=== PATIENT | female | born 1980 | race Caucasian/White ===

== ENCOUNTER 2016-07-30 19:25 | Emergency (ER) | payer MEDICAID ==
[2015-08-06 13:07] VITALS: BMI 18.9
[~2016-07-30 19:25] MED LIST: HYDROCODONE-APA1 TAB PO; PERCOCET 10/3251 TA1 PO; ROBAXIN-750750 MG PO
== END 2016-07-30 21:25 | disposition home or self-care (01) ==
LOC: D.ER 19:25
DX: M25.531 Pain in right wrist (principal); M65.831 Other synovitis and tenosynovitis, right forearm

== ENCOUNTER 2016-08-12 14:42 | Emergency (ER) | payer MEDICAID ==
[2015-08-06 13:07] VITALS: BMI 18.9
== END 2016-08-12 16:46 | disposition home or self-care (01) ==
LOC: D.ER 14:42
DX: S63.501A Unspecified sprain of right wrist, initial encounter (principal); W19.XXXA Unspecified fall, initial encounter; Y93.89 Activity, other specified; Y92.89 Other specified places as the place of occurrence of the external cause; F17.200 Nicotine dependence, unspecified, uncomplicated

== ENCOUNTER → 2016-09-12 12:41 | Outpatient (CLI) | payer MEDICAID ==
[2015-08-06 13:07] VITALS: BMI 18.9
== END | disposition home or self-care (01) ==
LOC: D.MRI 09-07 16:00
DX: G56.31 Lesion of radial nerve, right upper limb (principal); M25.531 Pain in right wrist

== ENCOUNTER 2016-10-06 22:13 | Emergency (ER) | payer MEDICAID ==
[2015-08-06 13:07] VITALS: BMI 18.9
== END 2016-10-06 23:43 | disposition home or self-care (01) ==
LOC: D.ER 22:13
DX: L76.82 Other postprocedural complications of skin and subcutaneous tissue (principal)

== ENCOUNTER 2016-10-09 20:44 | Emergency (ER) | payer MEDICAID ==
[2015-08-06 13:07] VITALS: BMI 18.9
== END 2016-10-09 21:58 | disposition home or self-care (01) ==
LOC: D.ER 20:44
DX: S61.511D Laceration without foreign body of right wrist, subsequent encounter (principal); X58.XXXD Exposure to other specified factors, subsequent encounter; Y92.89 Other specified places as the place of occurrence of the external cause; F17.200 Nicotine dependence, unspecified, uncomplicated

== ENCOUNTER 2016-11-02 22:46 | Emergency (ER) | payer MEDICAID ==
[2015-08-06 13:07] VITALS: BMI 18.9
== END 2016-11-03 00:02 | disposition home or self-care (01) ==
LOC: D.ER 22:46
DX: S60.221A Contusion of right hand, initial encounter (principal); W20.8XXA Other cause of strike by thrown, projected or falling object, initial encounter; Y93.89 Activity, other specified; Y92.019 Unspecified place in single-family (private) house as the place of occurrence of the external cause

== ENCOUNTER 2016-11-08 17:29 | Emergency (ER) | payer MEDICAID ==
[2015-08-06 13:07] VITALS: BMI 18.9
== END 2016-11-08 20:00 | disposition home or self-care (01) ==
LOC: D.ER 17:29
DX: S61.411A Laceration without foreign body of right hand, initial encounter (principal); W01.110A Fall on same level from slipping, tripping and stumbling with subsequent striking against sharp glass, initial encounter; Y93.89 Activity, other specified; Y92.019 Unspecified place in single-family (private) house as the place of occurrence of the external cause

== ENCOUNTER 2016-12-20 13:30 | Emergency (ER) | payer MEDICAID ==
[2015-08-06 13:07] VITALS: BMI 18.9
== END 2016-12-20 15:15 | disposition home or self-care (01) ==
LOC: D.ER 13:30
DX: S05.01XA Injury of conjunctiva and corneal abrasion without foreign body, right eye, initial encounter (principal); X58.XXXA Exposure to other specified factors, initial encounter; Y93.89 Activity, other specified; Y92.029 Unspecified place in mobile home as the place of occurrence of the external cause

== ENCOUNTER 2017-01-01 10:04 | Emergency (ER) | payer MEDICAID ==
[2015-08-06 13:07] VITALS: BMI 18.9
== END 2017-01-01 12:08 | disposition home or self-care (01) ==
LOC: D.ER 10:04
DX: J20.9 Acute bronchitis, unspecified (principal); F17.200 Nicotine dependence, unspecified, uncomplicated

== ENCOUNTER 2017-01-01 19:41 | Emergency (ER) | payer MEDICAID ==
[2015-08-06 13:07] VITALS: BMI 18.9
[2017-01-01 21:07] LABS: BASOPHILS 0 % (0-2); EOSINOPHILS 0 % (0-7); HEMATOCRIT 42.2 % (36.0-48.0); HEMOGLOBIN 14.2 g/dL (12-16); IMMATURE GRANULOCYTES 0.2 % (0-5); LYMPHOCYTES 14.4 % (15-50); MCH 31.6 pg (26.0-34.0); MCHC 33.6 g/dL (31.0-37.0); MEAN PLATELET VOLUME 11.9 fL (7.4-10.4); MONOCYTES 1.8 % (2-11); NEUTROPHILS 83.6 % (40-80); RBC 4.49 10x6/uL (4.00-5.40); RDW 12.2 % (11.5-14.5); WBC 4.5 10x3/uL (4.8-10.8)
[2017-01-01 21:21] LABS: PLATELET COUNT 219 10x3/uL (130-400)
[2017-01-01 21:23] LABS: ALBUMIN 3.6 g/dL (3.4-5.0); ALKALINE PHOSPHATASE 106 U/L (46-116); ALT (SGPT) 17 U/L (10-68); BILIRUBIN - TOTAL 0.11 mg/dL (0.2-1.3); CALC OSMOLALITY 286 mosm/kg (275-300); CALCIUM 9.1 mg/dL (8.5-10.1); CARBON DIOXIDE 26.7 mmol/L (21.0-32.0); CHLORIDE - SERUM 105 mmol/L (98-107); CREATININE - SERUM 0.8 mg/dL (0.6-1.3); POTASSIUM - SERUM 4.2 mmol/L (3.5-5.1); PROTEIN - SERUM 7.1 g/dL (6.4-8.2); SODIUM 142 mmol/L (136-145); UREA NITROGEN 18 mg/dL (7-18); eGFR NON AFRICAN AMERICAN 86 mL/min (90-120)
[2017-01-01 21:25] LABS: GLUCOSE 143 mg/dL (74-106)
[2017-01-01 21:27] LABS: TROPONIN-I < 0.017 ng/mL (0.000-0.060)
== END 2017-01-01 21:50 | disposition home or self-care (01) ==
LOC: D.ER 19:41
PROVIDERS: Physician Assistant Medical
DX: J20.9 Acute bronchitis, unspecified (principal); F17.200 Nicotine dependence, unspecified, uncomplicated

== ENCOUNTER 2017-01-08 18:04 | Emergency (ER) | payer MEDICAID ==
[2015-08-06 13:07] VITALS: BMI 18.9
== END 2017-01-08 21:15 | disposition home or self-care (01) ==
LOC: D.ER 18:04
DX: S92.901A Unspecified fracture of right foot, initial encounter for closed fracture (principal); W10.9XXA Fall (on) (from) unspecified stairs and steps, initial encounter; Y93.89 Activity, other specified; Y92.029 Unspecified place in mobile home as the place of occurrence of the external cause

== ENCOUNTER 2017-01-11 22:41 | Emergency (ER) | payer MEDICAID ==
[2015-08-06 13:07] VITALS: BMI 18.9
== END 2017-01-11 23:28 | disposition home or self-care (01) ==
LOC: D.ER 22:41
DX: S93.601A Unspecified sprain of right foot, initial encounter (principal); X58.XXXA Exposure to other specified factors, initial encounter; Y93.89 Activity, other specified; Y92.029 Unspecified place in mobile home as the place of occurrence of the external cause

== ENCOUNTER 2017-01-17 22:39 | Emergency (ER) | payer MEDICAID ==
[2015-08-06 13:07] VITALS: BMI 18.9
== END 2017-01-17 23:34 | disposition home or self-care (01) ==
LOC: D.ER 22:39
DX: L03.116 Cellulitis of left lower limb (principal); F17.200 Nicotine dependence, unspecified, uncomplicated

== ENCOUNTER 2017-03-04 21:22 | Emergency (ER) | payer MEDICAID ==
[2015-08-06 13:07] VITALS: BMI 18.9
== END 2017-03-04 22:25 | disposition home or self-care (01) ==
LOC: D.ER 21:22
DX: M62.838 Other muscle spasm (principal); M54.12 Radiculopathy, cervical region

== ENCOUNTER 2017-03-13 22:27 | Emergency (ER) | payer MEDICAID ==
[2015-08-06 13:07] VITALS: BMI 18.9
== END 2017-03-14 03:01 | disposition home or self-care (01) ==
LOC: D.ER 22:27
DX: S83.91XA Sprain of unspecified site of right knee, initial encounter (principal); W11.XXXA Fall on and from ladder, initial encounter; Y93.89 Activity, other specified; Y92.019 Unspecified place in single-family (private) house as the place of occurrence of the external cause; S93.401A Sprain of unspecified ligament of right ankle, initial encounter; S20.229A Contusion of unspecified back wall of thorax, initial encounter; S30.0XXA Contusion of lower back and pelvis, initial encounter; S40.012A Contusion of left shoulder, initial encounter; S06.0X0A Concussion without loss of consciousness, initial encounter; F17.200 Nicotine dependence, unspecified, uncomplicated

== ENCOUNTER 2017-03-19 22:59 | Emergency (ER) | payer MEDICAID ==
[2015-08-06 13:07] VITALS: BMI 18.9
== END 2017-03-20 00:25 | disposition home or self-care (01) ==
LOC: D.ER 22:59
DX: S39.012A Strain of muscle, fascia and tendon of lower back, initial encounter (principal); W19.XXXA Unspecified fall, initial encounter; Y93.89 Activity, other specified; Y92.019 Unspecified place in single-family (private) house as the place of occurrence of the external cause; S16.1XXA Strain of muscle, fascia and tendon at neck level, initial encounter; M62.830 Muscle spasm of back; F17.200 Nicotine dependence, unspecified, uncomplicated

== ENCOUNTER 2017-03-21 02:36 | Emergency (ER) | payer MEDICAID ==
[2015-08-06 13:07] VITALS: BMI 18.9
== END 2017-03-21 05:21 | disposition home or self-care (01) ==
LOC: D.ER 02:36
DX: S90.31XA Contusion of right foot, initial encounter (principal); W20.8XXA Other cause of strike by thrown, projected or falling object, initial encounter; Y93.89 Activity, other specified; Y92.89 Other specified places as the place of occurrence of the external cause

== ENCOUNTER 2017-03-31 16:28 | Emergency (ER) | payer MEDICAID ==
[2015-08-06 13:07] VITALS: BMI 18.9
== END 2017-03-31 19:01 | disposition home or self-care (01) ==
LOC: D.ER 16:28
DX: T39.1X5A Adverse effect of 4-Aminophenol derivatives, initial encounter (principal); Y92.019 Unspecified place in single-family (private) house as the place of occurrence of the external cause

== ENCOUNTER 2017-04-17 16:34 | Emergency (ER) | payer MEDICAID ==
[2015-08-06 13:07] VITALS: BMI 18.9
== END 2017-04-17 19:20 | disposition home or self-care (01) ==
LOC: D.ER 16:34
DX: S20.219A Contusion of unspecified front wall of thorax, initial encounter (principal); W20.8XXA Other cause of strike by thrown, projected or falling object, initial encounter; Y93.89 Activity, other specified; Y92.019 Unspecified place in single-family (private) house as the place of occurrence of the external cause; R07.81 Pleurodynia

== ENCOUNTER 2017-05-14 16:32 | Emergency (ER) | payer MEDICAID ==
[2015-08-06 13:07] VITALS: BMI 18.9
[2017-05-14 18:39] LABS: BASOPHILS 0.2 % (0-2); EOSINOPHILS 1.1 % (0-7); HEMOGLOBIN 13.6 g/dL (12-16); IMMATURE GRANULOCYTES 0.2 % (0-5); LYMPHOCYTES 31.4 % (15-50); MCH 31.6 pg (26.0-34.0); MCHC 33.2 g/dL (31.0-37.0); MCV 95.3 fL (80.0-100.0); MEAN PLATELET VOLUME 11.8 fL (7.4-10.4); MONOCYTES 7.6 % (2-11); NEUTROPHILS 59.5 % (40-80); PLATELET COUNT 195 10x3/uL (130-400); WBC 5.3 10x3/uL (4.8-10.8)
[2017-05-14 18:41] LABS: UDS - AMPHET NEGATIVE QUAL (NEGATIVE); UDS - BARB NEGATIVE QUAL (NEGATIVE); UDS - BENZO NEGATIVE QUAL (NEGATIVE); UDS - COCAINE NEGATIVE QUAL (NEGATIVE); UDS - OPIATE POSITIVE QUAL (NEGATIVE); UDS - PCP NEGATIVE QUAL (NEGATIVE); UDS - THC NEGATIVE QUAL (NEGATIVE)
[2017-05-14 18:48] LABS: ALBUMIN 3.6 g/dL (3.4-5.0); ALKALINE PHOSPHATASE 89 U/L (46-116); ALT (SGPT) 13 U/L (10-68); BILIRUBIN - TOTAL 0.32 mg/dL (0.2-1.3); CALC OSMOLALITY 283 mosm/kg (275-300); CALCIUM 8.9 mg/dL (8.5-10.1); CARBON DIOXIDE 27.6 mmol/L (21.0-32.0); CHLORIDE - SERUM 106 mmol/L (98-107); CREATININE - SERUM 0.6 mg/dL (0.6-1.3); POTASSIUM - SERUM 3.7 mmol/L (3.5-5.1); PROTEIN - SERUM 7.4 g/dL (6.4-8.2); SODIUM 144 mmol/L (136-145); UREA NITROGEN 5 mg/dL (7-18); eGFR NON AFRICAN AMERICAN > 90 mL/min (90-120)
[2017-05-14 18:49] LABS: APPEARANCE CLEAR (CLEAR); BILIRUBIN NEGATIVE (NEGATIVE); COLOR YELLOW (YELLOW); GLUCOSE NEGATIVE (NEGATIVE); KETONE NEGATIVE (NEGATIVE); NITRITE NEGATIVE (NEGATIVE); PROTEIN NEGATIVE (NEGATIVE); UROBILINOGEN NORMAL (NORMAL)
[2017-05-14 18:55] LABS: GLUCOSE 95 mg/dL (74-106)
== END 2017-05-14 18:57 | disposition home or self-care (01) ==
LOC: D.ER 16:32
PROVIDERS: Family Medicine
DX: G89.18 Other acute postprocedural pain (principal); F17.200 Nicotine dependence, unspecified, uncomplicated

== ENCOUNTER 2017-07-09 17:55 | Emergency (ER) | payer MEDICAID ==
[2015-08-06 13:07] VITALS: BMI 18.9
[2017-07-09 18:48] LABS: APPEARANCE CLEAR (CLEAR); BILIRUBIN NEGATIVE (NEGATIVE); COLOR YELLOW (YELLOW); GLUCOSE NEGATIVE (NEGATIVE); HCG URINE NEGATIVE (NEGATIVE); KETONE NEGATIVE (NEGATIVE); NITRITE NEGATIVE (NEGATIVE); PH 6.5 (5.0-6.0); PROTEIN NEGATIVE (NEGATIVE); SPECIFIC GRAVITY 1.005 (1.005-1.020); UROBILINOGEN NORMAL (NORMAL)
== END 2017-07-09 22:55 | disposition home or self-care (01) ==
LOC: D.ER 17:55
PROVIDERS: Family Medicine; Nurse Practitioner Family
DX: M54.5 Low back pain (principal); F17.200 Nicotine dependence, unspecified, uncomplicated

== ENCOUNTER 2017-09-06 19:43 | Emergency (ER) | payer MEDICAID ==
[~2017-09-06] VITALS: Ht 162.6 cm; Wt 52.3 kg
[2017-09-06 20:01] VITALS: Ht 162.6 cm; Wt 52.3 kg
[2017-09-06] MEDS ORDERED: PREDNISONE20 MG PO (20:41)
[2017-09-06] MEDS ORDERED: TALWIN NX1 TAB PO (20:41)
[2017-09-06 21:01] VITALS: BP 145/72
== END 2017-09-06 21:03 | disposition home or self-care (01) ==
LOC: D.ER 19:43
DX: M79.604 Pain in right leg (principal); M79.1 Myalgia; W11.XXXA Fall on and from ladder, initial encounter; Y93.89 Activity, other specified; Y92.89 Other specified places as the place of occurrence of the external cause

== ENCOUNTER 2017-09-14 20:19 | Emergency (ER) | payer MEDICAID ==
[~2017-09-14] VITALS: Ht 162.6 cm; Wt 52.2 kg
[~2017-09-14 20:19] MED LIST changes: +PREDNISONE20 MG PO; +TALWIN NX1 TAB PO
[2017-09-14 20:38] VITALS: BP 113/81; Ht 162.6 cm; Wt 52.2 kg
== END 2017-09-14 23:22 | disposition home or self-care (01) ==
LOC: D.ER 20:19
DX: S41.112A Laceration without foreign body of left upper arm, initial encounter (principal); W26.8XXA Contact with other sharp object(s), not elsewhere classified, initial encounter; Y93.89 Activity, other specified; Y92.019 Unspecified place in single-family (private) house as the place of occurrence of the external cause; F17.200 Nicotine dependence, unspecified, uncomplicated

== ENCOUNTER 2017-09-24 14:46 | Emergency (ER) | payer MEDICAID ==
[~2017-09-24] VITALS: Ht 162.6 cm; Wt 50.0 kg
[2017-09-24 14:55] VITALS: Ht 162.6 cm; Wt 50.0 kg
[2017-09-24] MEDS ORDERED: VALIUM 2 MG TAB2 MG PO (17:02)
[2017-09-24] MEDS ORDERED: EC-NAPROSYN500 MG PO (17:04)
[2017-09-24 17:23] VITALS: BP 122/80
== END 2017-09-24 17:24 | disposition home or self-care (01) ==
LOC: D.ER 14:46
DX: S20.211A Contusion of right front wall of thorax, initial encounter (principal); Y93.83 Activity, rough housing and horseplay; Y92.019 Unspecified place in single-family (private) house as the place of occurrence of the external cause; M94.0 Chondrocostal junction syndrome [Tietze]; F17.200 Nicotine dependence, unspecified, uncomplicated

== ENCOUNTER 2017-09-25 22:29 | Emergency (ER) | payer MEDICAID ==
[~2017-09-25] VITALS: Ht 162.6 cm; Wt 49.9 kg
[~2017-09-25 22:29] MED LIST changes: +EC-NAPROSYN500 MG PO; +VALIUM 2 MG TAB2 MG PO
[2017-09-25 23:03] VITALS: Ht 162.6 cm; Wt 49.9 kg
[2017-09-26 00:47] LABS: BASOPHILS 0.1 % (0-2); EOSINOPHILS 0.3 % (0-7); HEMATOCRIT 39.1 % (36.0-48.0); HEMOGLOBIN 13.4 g/dL (12-16); IMMATURE GRANULOCYTES 0.1 % (0-5); LYMPHOCYTES 18.1 % (15-50); MCH 32.1 pg (26.0-34.0); MCHC 34.3 g/dL (31.0-37.0); MCV 93.8 fL (80.0-100.0); MEAN PLATELET VOLUME 11.8 fL (7.4-10.4); MONOCYTES 4.5 % (2-11); NEUTROPHILS 76.9 % (40-80); PLATELET COUNT 179 10x3/uL (130-400); RBC 4.17 10x6/uL (4.00-5.40); RDW 13.1 % (11.5-14.5); WBC 9.2 10x3/uL (4.8-10.8)
[2017-09-26 00:50] LABS: ALBUMIN 3.4 g/dL (3.4-5.0); ALKALINE PHOSPHATASE 93 U/L (46-116); ALT (SGPT) 25 U/L (10-68); BILIRUBIN - TOTAL 0.22 mg/dL (0.2-1.3); CALC OSMOLALITY 280 mosm/kg (275-300); CALCIUM 8.7 mg/dL (8.5-10.1); CHLORIDE - SERUM 103 mmol/L (98-107); CREATININE - SERUM 0.7 mg/dL (0.6-1.3); GLUCOSE 119 mg/dL (74-106); POTASSIUM - SERUM 3.5 mmol/L (3.5-5.1); SODIUM 141 mmol/L (136-145); UREA NITROGEN 9 mg/dL (7-18); eGFR NON AFRICAN AMERICAN > 90 mL/min (90-120)
[2017-09-26 03:04] VITALS: BP 145/84
== END 2017-09-26 02:59 | disposition home or self-care (01) ==
LOC: D.ER 22:29
PROVIDERS: Family Medicine
DX: S20.211A Contusion of right front wall of thorax, initial encounter (principal); W19.XXXA Unspecified fall, initial encounter; Y93.89 Activity, other specified; Y92.019 Unspecified place in single-family (private) house as the place of occurrence of the external cause; F17.200 Nicotine dependence, unspecified, uncomplicated

== ENCOUNTER 2018-01-24 13:43 | Emergency (ER) | payer MEDICAID ==
[~2018-01-24] VITALS: Ht 162.6 cm; Wt 52.3 kg
[2018-01-24 13:55] VITALS: Ht 162.6 cm; Wt 52.3 kg
[2018-01-24] MEDS ORDERED: INDOCIN25 MG PO (16:35)
[2018-01-24] MEDS ORDERED: VIBRAMYCIN 100100 MG PO (16:36)
[2018-01-24 17:05] VITALS: BP 123/70
[2018-01-28] MEDS ORDERED: TORADOL10 MG PO (23:27)
== END 2018-01-24 17:05 | disposition home or self-care (01) ==
LOC: D.ER 13:43
DX: L03.115 Cellulitis of right lower limb (principal); F17.200 Nicotine dependence, unspecified, uncomplicated

== ENCOUNTER 2018-01-28 20:00 | Emergency (ER) | payer MEDICAID ==
[2018-01-28 21:40] LABS: BASOPHILS 0.9 % (0-2); EOSINOPHILS 6.5 % (0-7); HEMATOCRIT 37.8 % (36.0-48.0); HEMOGLOBIN 12.6 g/dL (12-16); IMMATURE GRANULOCYTES 0.2 % (0-5); LYMPHOCYTES 38.4 % (15-50); MCH 31.7 pg (26.0-34.0); MCHC 33.3 g/dL (31.0-37.0); MCV 95.2 fL (80.0-100.0); MEAN PLATELET VOLUME 10.8 fL (7.4-10.4); MONOCYTES 6.7 % (2-11); NEUTROPHILS 47.3 % (40-80); PLATELET COUNT 153 10x3/uL (130-400); RBC 3.97 10x6/uL (4.00-5.40); RDW 13.4 % (11.5-14.5); WBC 4.5 10x3/uL (4.8-10.8)
[2018-01-28 22:07] LABS: ALBUMIN 3.4 g/dL (3.4-5.0); ALKALINE PHOSPHATASE 72 U/L (46-116); ALT (SGPT) 25 U/L (10-68); BILIRUBIN - TOTAL 0.28 mg/dL (0.2-1.3); CALCIUM 8.2 mg/dL (8.5-10.1); CARBON DIOXIDE 31.7 mmol/L (21.0-32.0); CHLORIDE - SERUM 101 mmol/L (98-107); CREATININE - SERUM 0.6 mg/dL (0.6-1.3); GLUCOSE 107 mg/dL (74-106); POTASSIUM - SERUM 3.7 mmol/L (3.5-5.1); PROTEIN - SERUM 6.9 g/dL (6.4-8.2); SODIUM 140 mmol/L (136-145); eGFR NON AFRICAN AMERICAN > 90 mL/min (90-120)
[2018-01-28 22:14] LABS: CALC OSMOLALITY 276 mosm/kg (275-300); UREA NITROGEN 8 mg/dL (7-18)
== END 2018-01-28 23:55 | disposition home or self-care (01) ==
LOC: D.ER 20:00
PROVIDERS: Family Medicine
DX: L72.3 Sebaceous cyst (principal); F17.200 Nicotine dependence, unspecified, uncomplicated

== ENCOUNTER 2018-02-03 09:33 | Emergency (ER) | payer MEDICAID ==
[~2018-02-03] VITALS: Ht 162.6 cm; Wt 52.3 kg
[~2018-02-03 09:33] MED LIST changes: +INDOCIN25 MG PO; +TORADOL10 MG PO; +VIBRAMYCIN 100100 MG PO
[2018-02-03 09:46] VITALS: Ht 162.6 cm; Wt 52.3 kg
[2018-02-03] MEDS ORDERED: NORCO 7.5/325 T1 TA1 PO (12:21)
[2018-02-03 13:57] VITALS: BP 127/64
== END 2018-02-03 12:40 | disposition home or self-care (01) ==
LOC: D.ER 09:33
DX: L02.415 Cutaneous abscess of right lower limb (principal); F17.200 Nicotine dependence, unspecified, uncomplicated

== ENCOUNTER 2018-02-09 06:50 | Day surgery (SDC) | payer MEDICAID ==
[~2018-02-09] VITALS: Ht 162.6 cm; Wt 49.4 kg
[~2018-02-09 06:50] MED LIST changes: +NORCO 7.5/325 T1 TA1 PO
[2018-02-09] MEDS ORDERED: ADVIL200 MG PO (10:30)
[2018-02-09 10:33] VITALS: BP 101/52; Ht 162.6 cm; Wt 49.4 kg
[2018-02-09] MEDS ORDERED: DILAUDID2 MG PO (14:31)
[2018-02-09] MEDS ORDERED: BACTRIM DS1 TAB PO (14:35)
--- NOTE | 2018-02-09 15:15 | NUR ---
REC'D FROM RR. FAMILY AT BEDSIDE. DRESSING CDI TO RIGHT POSTERIOR THIGH. ICE BROUGHT TO PT FOR MT PETER. FL ERIKA SERVED.
--- NOTE | 2018-02-09 15:45 | NUR ---
TOLERATED DIET. AMBULATED TO BATHROOM AND VOIDED WITHOUT DIFFICULTY. IV DC'D WITH CATHETER INTACT,
--- NOTE | 2018-02-09 16:15 | NUR ---
WRITTEN AND VERBAL DC INST GIVEN TO PT ALONG WITH RX. VERBALIZED UNDERSTANDING.
--- NOTE | 2018-02-09 16:25 | NUR ---
DC'D HOME WITH FAMILY VIA PRIVATE VEHICLE. TAKEN TO VEHICLE VIA WC. STABLE AT TIME OF DC.
--- NOTE | 2018-02-19 17:55 | OP ---
PATIENT NAME: DEON HAYWARD MEDICAL RECORD: [id number] :80 LOCATION:[facility] ADMISSION DATE: SURGEON: AMMON WALKER MD DATE OF OPERATION: 02/09/2018 PREOPERATIVE DIAGNOSES: 1. Left posterior thigh mass. 2. Tobacco dependence syndrome. 3. Anxiety. POSTOPERATIVE DIAGNOSES: 1. Left posterior thigh mass. 2. Tobacco dependence syndrome. 3. Anxiety. PROCEDURE: Excision of 3 cm right posterior thigh sebaceous cyst. SURGEON: Ammon Walker MD REPORT OF PROCEDURE: The patient's right posterior thigh was prepped and draped in sterile fashion. A longitudinal incision was made through the mass and there was a spillage of some purulent fluid. Cultures were taken x2. The purulence was incorporated and sebum consistent with a sebaceous cyst. The opening was extended the full 3 cm of the area of inflammation and an ovoid incision was made including a layer of skin. The cyst pocket was completely excised and then we removed some of the surrounding inflamed fatty tissue. This was extended all the way down to the fascia, but not including it. The wound was then irrigated out with peroxide and saline solution. Any bleeding that was found was treated with electrocautery. We then irrigated out the wound one last time with peroxide and saline solution. The subcutaneous tissues were reapproximated with interrupted 3-0 Vicryl and then infused with 10 mL of 0.25% Marcaine with epinephrine. The skin was closed with running subcutaneous 5-0 Monocryl followed by a layer of interrupted 5-0 Monocryl. COMPLICATIONS: None. CONDITION: Stable. ANESTHESIA: General endotracheal and local. BLOOD LOSS: Minimal. TRANSINT:[id number] Voice Confirmation ID: [id number] DOCUMENT ID: [id number] AMOMN WALKER MD at 1756 CC: ESTEPHANIA RESENDIZ [id number] DICTATION DATE: 02/09/18 1435 AUTOMATION LEAD: 02/09/182023 [facility] 02/09/[address] [id number]
== END 2018-02-09 16:25 | disposition home or self-care (01) ==
LOC: D.OPS 06:50 → D.PAN 09:00 → D.OPS 10:15
DX: L72.0 Epidermal cyst (principal); F17.290 Nicotine dependence, other tobacco product, uncomplicated; F41.9 Anxiety disorder, unspecified; Z01.812 Encounter for preprocedural laboratory examination

== ENCOUNTER 2018-03-01 22:42 | Emergency (ER) | payer MEDICAID ==
[~2018-03-01] VITALS: Ht 162.6 cm; Wt 52.3 kg
[~2018-03-01 22:42] MED LIST changes: +ADVIL200 MG PO; +BACTRIM DS1 TAB PO; +DILAUDID2 MG PO
[2018-03-01 22:46] VITALS: Ht 162.6 cm; Wt 52.3 kg
[2018-03-01] MEDS ORDERED: MINOCIN50 MG PO (23:02)
[2018-03-01] MEDS ORDERED: NORCO 7.5/325 T1 TA1 PO (23:02)
[2018-03-01 23:40] VITALS: BP 144/82
== END 2018-03-01 23:41 | disposition home or self-care (01) ==
LOC: D.ER 22:42
DX: L03.115 Cellulitis of right lower limb (principal); F17.200 Nicotine dependence, unspecified, uncomplicated

== ENCOUNTER 2018-04-08 21:41 | Emergency (ER) | payer MEDICAID ==
[~2018-04-08] VITALS: Ht 162.6 cm; Wt 52.3 kg
[~2018-04-08 21:41] MED LIST changes: +MINOCIN50 MG PO
[2018-04-08 21:47] VITALS: Ht 162.6 cm; Wt 52.3 kg
[2018-04-08] MEDS ORDERED: TALWIN NX1 TAB PO (22:43)
[2018-04-08] MEDS ORDERED: BACTRIM 400-801 TAB PO (22:43)
[2018-04-08 23:24] VITALS: BP 120/67
== END 2018-04-08 23:24 | disposition home or self-care (01) ==
LOC: D.ER 21:41
DX: L03.314 Cellulitis of groin (principal); F17.200 Nicotine dependence, unspecified, uncomplicated

== ENCOUNTER 2018-04-29 03:03 | Emergency (ER) | payer MEDICAID ==
[~2018-04-29] VITALS: Ht 162.6 cm; Wt 51.4 kg
[~2018-04-29 03:03] MED LIST changes: +BACTRIM 400-801 TAB PO
[2018-04-29 03:07] VITALS: Ht 162.6 cm; Wt 51.4 kg
[2018-04-29] MEDS ORDERED: TORADOL10 MG PO (04:37)
[2018-04-29 04:44] VITALS: BP 120/76
== END 2018-04-29 04:44 | disposition home or self-care (01) ==
LOC: D.ER 03:03
DX: M94.0 Chondrocostal junction syndrome [Tietze] (principal); M25.552 Pain in left hip; W18.30XA Fall on same level, unspecified, initial encounter; Y93.89 Activity, other specified; Y92.019 Unspecified place in single-family (private) house as the place of occurrence of the external cause

== ENCOUNTER 2018-06-25 20:03 | Emergency (ER) | payer MEDICAID ==
[~2018-06-25] VITALS: Ht 162.6 cm; Wt 50.0 kg
[2018-06-25 20:14] VITALS: Ht 162.6 cm; Wt 50.0 kg
[2018-06-25] MEDS ORDERED: KEFLEX500 MG PO (20:42)
[2018-06-25 21:35] VITALS: BP 128/69
== END 2018-06-25 21:37 | disposition home or self-care (01) ==
LOC: D.ER 20:03
DX: J02.9 Acute pharyngitis, unspecified (principal)

== ENCOUNTER 2019-03-06 14:56 | Emergency (ER) | payer MEDICAID ==
[~2019-03-06] VITALS: Ht 162.6 cm; Wt 50.9 kg
[~2019-03-06 14:56] MED LIST changes: +KEFLEX500 MG PO
[2019-03-06 15:02] VITALS: Ht 162.6 cm; Wt 50.9 kg
[2019-03-06] MEDS ORDERED: PREDNISONE20 MG PO (15:37)
[2019-03-06] MEDS ORDERED: TALWIN NX1 TAB PO (15:37)
[2019-03-06 16:02] VITALS: BP 122/44
== END 2019-03-06 16:34 | disposition home or self-care (01) ==
LOC: D.ER 14:56
DX: M25.562 Pain in left knee (principal); M77.9 Enthesopathy, unspecified